=== PATIENT | male | born 1965 | race Two or more races ===

== ENCOUNTER 2016-12-30 14:16 | Day surgery (SDC) | payer OTHER ==
[~2016-12-30] VITALS: Ht 160 cm; Wt 83.2 kg
[2016-12-30 15:09] VITALS: Ht 160 cm; Wt 83.2 kg
[2016-12-30] MEDS ORDERED: METO25TA4 PO (15:46)
[2016-12-30] MEDS ORDERED: ASPI81TA3 PO (15:46)
[2016-12-30] MEDS ORDERED: LISI10TA2 PO (15:46)
[2016-12-30] MEDS ORDERED: SIMV40TA3 PO (15:46)
[2016-12-30] MEDS ORDERED: METOPROLOL 5 MG INJ ONE (16:07)
[2016-12-30] MEDS ORDERED: PROPOFOL 40 ML ONE (16:07)
--- NOTE | 2016-12-30 16:59 | OPPN ---
Date/Time of Note Date/Time of Note DATE: 12/30/16 TIME: 16:54 Proc Note GI Procedure Date 12/30/16 Pre-procedure Diagnosis * Colorectal cancer screening Post-procedure Diagnosis Assessment: * 3 mm rectal polyp. Ablated * 6 mm sessile polyp transverse colon. Snared and retrieved * 12 mm sessile polyp descending colon. Post saline assisted polypectomy and localization tattoo * Moderate-sized internal hemorrhoids * Poor preparation precludes optimal examination Plan: * Pathology as soon as available * Follow-up as previously scheduled * Early reevaluation 6-12 months due to poor preparation found today and findings of significant polyps Surgeon MARIVEL GRACIA MD Network Operations Manager none Anesthesiologist: BERNADETTE DICKENS MD EBL none Transfusion required none Polyp 1: 3 mm polyp rectum. Ablated Polyp 2: 6 mm sessile polyp transverse colon. Snared Polyp 3: 12 mm sessile polyp descending colon. Saline assisted polypectomy Grafts/Implants none Complication(s) none Pt Condition post procedure: stable Disposition: home Indications: screening/surveillance Procedure Description After informed consent, with the patient/relatives understanding the procedure, its indications and potential risks and complications, including but not limited to: Allergic reaction, bleeding, perforation, infection, and after all pertinent questions were answered to the patient's satisfaction, the patient/ relatives signed the witnessed informed consent. Following this, premedication was administered slowly IV push under careful cardiovascular and respiratory monitoring with pulse OXIMETRY, automatic blood pressure, and home energy inspector. Once the sedative effect was achieved, the patient was placed in the left lateral decubitus position, digital rectal examination was performed. The colonoscope was then introduced and advanced under visual control throughout all segments of the colon including: the rectum, sigmoid, descending colon, splenic flexure, transverse colon, hepatic flexure, ascending colon and finally reaching the cecum which was clearly identified by transillumination, finger indentation and the ileocecal valve. Careful examination of the mucosa of the lower gastrointestinal tract both on insertion as well as withdrawal of the instrument disclosed the following findings: PREPARATION QUALITY: , [Poor, procedure completed] RECTAL EXAM: The anorectal area was visualized examined and digital rectal examination performed with the following findings: No evidence of perirectal disease, no masses. COLONIC MUCOSA: The mucosa of all segments of the colon was carefully examined and showed the following findings: The preparation is suboptimal particularly the right side of the colon with solid stool present that could not be lavaged. A 3 mm polyp was noted in the rectum. Ablated with biopsy forceps. A 6 mm polyp was noted in the transverse colon. Snared and retrieved. 12 mm sessile polyp in the descending colon. Post saline assisted polypectomy and localization tattoo. Large internal hemorrhoids are present. Otherwise the examined mucosa appears within normal limits. There is no evidence of inflammatory changes, diverticular formation, other neoplasms, vascular malformation, or any other abnormality. The instrument was then withdrawn, the patient tolerated the procedure well and was transferred out of the Endoscopy Suite awake and in good condition to continue recovery under observation. Copies To: CC: MARIVEL GRACIA MD, MORDO MD Dec 30, 2016 16:59
[2016-12-30] MEDS ORDERED: PROPOFOL 20 ML ONE (17:02)
[2016-12-30 17:15] VITALS: BP 105/74; RESP 14
--- NOTE | 2016-12-30 20:19 | RADRPT ---
Vent Rate: 89 bpm RR Interval: 0 msec ME Interval: 136 msec QRS Duration: 80 msec QT Interval: 374 msec QTC Interval: 455 msec P-R-T [place]: 74 - 19 - 80 degrees Normal sinus rhythm Normal ECG Electronically Signed By: Bryson Noel [id number]
== END 2016-12-30 18:33 | disposition home or self-care (01) ==
LOC: GIL 14:16
PROVIDERS: ATTEND Internal Medicine Gastroenterology
DX: Z12.11 Encounter for screening for malignant neoplasm of colon (principal); D12.4 Benign neoplasm of descending colon; K63.5 Polyp of colon; K62.1 Rectal polyp; K64.8 Other hemorrhoids; I25.10 Atherosclerotic heart disease of native coronary artery without angina pectoris; Z95.1 Presence of aortocoronary bypass graft; E78.5 Hyperlipidemia, unspecified; I10 Essential (primary) hypertension
CPT/HCPCS: 45385; 45390; 88305; 93005; Z7610